=== PATIENT | male | born 2000 | race Caucasian/White ===

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

== ENCOUNTER 2024-08-10 22:04 | Emergency (ER) | payer OTHER ==
[~2024-08-10] VITALS: Ht 170.2 cm; Wt 74.8 kg
[2024-08-10 22:14] VITALS: BP 122/59; PULSE 76; RESP 18; TEMP 97.5; O2SAT 99
[2024-08-10 22:25] VITALS: O2SAT 99
[2024-08-10] MEDS: IBUPROFEN 600 MG TAB PO ONE (23:01)
[2024-08-10] MEDS ORDERED: IBUP-2213 PO (23:42)
[2024-08-10] MEDS ORDERED: CYCL-711 PO (23:42)
== END 2024-08-10 23:46 | disposition home or self-care (01) ==
LOC: MED 22:04
DX: S33.5XXA Sprain of ligaments of lumbar spine, initial encounter (principal); Z79.899 Other long term (current) drug therapy; V89.2XXA Person injured in unspecified motor-vehicle accident, traffic, initial encounter; Y93.89 Activity, other specified; Y92.89 Other specified places as the place of occurrence of the external cause; Y99.8 Other external cause status
CPT/HCPCS: 72100; 99283